=== PATIENT | male | born 1970 | race Caucasian/White ===

== ENCOUNTER 2020-01-18 13:46 | Emergency (ER) | payer OTHER ==
[~2020-01-18] VITALS: Ht 188 cm; Wt 122.5 kg
[2020-01-18 14:05] LABS: ABSOLUTE NEUTROPHILS 3.3 thou/uL (1.4-8.2); BASOPHILS 0.7 % (0.0-2.0); EOSINOPHILS 2.7 % (0.0-3.0); HEMATOCRIT 41.9 % (42.0-52.0); HEMOGLOBIN 14.2 gm/dL (14.0-18.0); LYMPHOCYTES 24.7 % (24.0-44.0); MCH 30.5 pg (26.0-34.0); MCHC 33.9 g/dL (28.0-37.0); MONOCYTES 11.3 % (1.0-8.0); PLATELET COUNT 260 thou/uL (150-400); POLYS 60.6 % (36.0-66.0); RBC 4.66 mil/uL (4.50-6.00); RDW 12.7 % (10.5-14.5); WBC 5.5 thou/uL (4.0-11.0)
[2020-01-18 14:15] LABS: ANION GAP 9 mmol/L (7-16); BUN 12 mg/dL (7-18); CALCIUM 9.1 mg/dL (8.5-10.1); CHLORIDE 104 mmol/L (98-107); CO2 27 mmol/L (21-32); CREATININE 1.1 mg/dL (0.7-1.3); GLUCOSE 101 mg/dL (74-106); SODIUM 140 mmol/L (136-145)
[2020-01-18 14:25] LABS: TROPONIN-I <0.06 ng/mL (<0.06)
[2020-01-18] MEDS ORDERED: ZOCOR 20 MG TAB20 M1 PO (15:33)
[2020-01-18] MEDS ORDERED: PANTOPRAZOLE SO40 M1 PO (15:33)
[2020-01-18] MEDS ORDERED: ZOLPIDEM TARTRA10 MG PO (15:33)
[2020-01-18] MEDS ORDERED: PROAIR HFA8.5 GM INH (15:34)
[2020-01-18] MEDS ORDERED: PRAZOSIN HCL1 MG PO (15:34)
[2020-01-18] MEDS ORDERED: SERTRALINE HCL50 MG PO (15:34)
[2020-01-18] MEDS ORDERED: TRETINOIN20 GM TOP (15:35)
[2020-01-18] MEDS ORDERED: NAPROSYN500 MG PO (15:42)
[2020-01-18 15:50] VITALS: BP 146/92
--- NOTE | 2020-01-19 08:25 | EKG ---
[facility] [place] [address] ELECTROCARDIOGRAM REPORT Name: SANDY HENDERSON Room #: DEP [facility]#: [id number] Admission: 01/18/20 Attend Phys: Discharge: 01/18/20 Date of : 66 Report #: [id number] THIS REPORT FOR: cc: Vinod Xiong MD, Michael B. MD Lundgren,Mo Scott MD [facility] ~ THIS REPORT FOR: //name// [facility] ED Test Date: 2020-01-18 Test Time: 13:46:53 Pat Name: SANDY HENDERSON Department: Room: Gender: [employer] Ass[employer] Manager: : 1970 Requested By: Hossein Byers Order Number: [id number] MD: Mo Jon Measurements Intervals [place] Rate: 68 P: 62 ME: 160 QRS: 39 QRSD: 87 T: 29 QT: 382 QTc: 407 Interpretive Statements Sinus rhythm Normal tracing No previous ECG available for comparison Electronically Signed On 01-19-2020 8:25:27 CDT by Mo Jon [email or web address] <ELECTRONICALLY SIGNED> By: Mo Jon MD, [facility] 01/19/20 0825 1346 45 Mo Jon MD, FACC /EPI
== END 2020-01-18 15:51 | disposition home or self-care (01) ==
LOC: ER 13:46
PROVIDERS: Emergency Medicine
DX: R07.89 Other chest pain (principal); E78.00 Pure hypercholesterolemia, unspecified; K21.9 Gastro-esophageal reflux disease without esophagitis; G43.909 Migraine, unspecified, not intractable, without status migrainosus; Z98.890 Other specified postprocedural states; Z79.899 Other long term (current) drug therapy

== ENCOUNTER → 2020-01-30 | Outpatient (CLI) | payer OTHER ==
[~2020-01-30] MED LIST: NAPROSYN500 MG PO; PANTOPRAZOLE SO40 M1 PO; PRAZOSIN HCL1 MG PO; PROAIR HFA8.5 GM INH; SERTRALINE HCL50 MG PO; TRETINOIN20 GM TOP; ZOCOR 20 MG TAB20 M1 PO; ZOLPIDEM TARTRA10 MG PO
== END ==
LOC: SJCVCIMAG 07:20
PROVIDERS: ATTEND Internal Medicine
DX: I10 Essential (primary) hypertension (principal); R06.00 Dyspnea, unspecified; R07.9 Chest pain, unspecified; E78.5 Hyperlipidemia, unspecified

== ENCOUNTER → 2021-02-18 | Outpatient (CLI) | payer OTHER | LOC: PUL 10:57 | PROVIDERS: ATTEND Chiropractor | DX: J45.998 Other asthma (principal); Z20.822 Contact with and (suspected) exposure to COVID-19 ==

== ENCOUNTER → 2021-02-26 | Outpatient (CLI) | payer OTHER ==
--- NOTE | ~2021-02-26 | PFR/MVV ---
[facility] [place] [address] PULMONARY FUNCTION MVV/REPORT Name: SANDY HENDERSON Room #: REG [facility]#: [id number] Admission: 02/26/21 Attend Phys: Jamil Higgins DO Discharge: Date of : 66 Report #: [id number] THIS REPORT FOR: //name// >> SPIROMETRY: (BTPS) Height: 74 in cm Weight: 300 lbs kg Exam Date: 02/26/21 PRE-RX POST-RX PRED BEST %PRED BEST %PRED %CHG FVC LITERS . 5.41 . 4.48 . 83 . 4.98 . 92 . 11 FEV1 LITERS . 3.88 . 3.18 . 82 . 3.74 . 95 . 16 FEV1/FVC % . 71 . 71 . 99 . 74 . 104 . 5 MQV57-52% L/Sec . 3.65 . 2.00 . 55 . 2.99 . 82 . 49 PEF L/SEC . 9.85 . 5.85 . 59 . 7.57 . 77 . 30 FEF50/FIF50 UNITLESS . 5.42 . 4.45 . 82 . 4.39 . 81 . -1 MVV L/Min . . . f 1/Min . . . >> LUNG VOLUMES: (BTPS) PRE-RX POST-RX PRED AVG %PRED AVG %PRED %CHG VC Liters . 5.41 . 4.87 . 90 . . . TLC Liters . 7.74 . 6.82 . 88 . . . RV Liters . 2.51 . 1.95 . 78 . . . RV/TLC % . 35 . 29 . 83 . . . FRC PL Liters . 3.51 . 2.01 . 57 . . . FRC N2 Liters . 3.51 . . . . . ERV Liters . 1.82 . 0.18 . 10 . . . IC Liters . 3.64 . 4.81 . 132 . . . >> DIFFUSION: DLCO ml/Min/mmHg . 34.4 . 27.9 . 81 . . . DL Perez ml/Min/mmHg . 34.4 . 27.9 . 81 . . . DLCO/VA ml/Min/mmHg . 3.96 . 5.91 . 149 . . . VA Liters . 7.94 . 4.72 . 59 . . . COMMENTS: COMMENTS: >> RESISTANCE: [facility] [address] [place] [address] PULMONARY FUNCTION MVV/REPORT Name: SANDY HENDERSON Room #: REG Colleen Hendrickson.#: [id number] Admission: 02/26/21 Attend Phys: Jamil Higgins DO Discharge: Date of : 66 Report #: [id number] PRE-RX PRED AVG %PRED Raw Total cmH20/L/Sec . . 3.72 . Raw Insp cmH20/L/Sec . . 2.00 . Raw Exp cmH20/L/Sec . . 4.28 . Raw cmH20/L/Sec . 1.29 . 2.82 . 219 Gaw L/Sec/cmH20 . 0.842 . 0.355 . 42 sRaw cmH20 Sec . 4.51 . 10.27 . 228 sGaw l/cmH20 Sec . 0.222 . 0.097 . 44 Vtq Liters . . 3.64 . # = OUTSIDE 95% CONFIDENCE INTERVAL CALIBRATION: PRED: 3.00 ACTUAL: EXP 3.01 INSP 3.02 [place] [address] [place] [address] N-[id number] >> INTERPRETATION/IMPRESSION: DATE OF SERVICE: 02/26/2021 PULMONARY FUNCTION STUDIES SPIROMETRY: FEV1 is 3.18 liters (82%), FVC is 4.48 liters (83% predicted), FEV1/FVC ratio 71%. There is a significant response to bronchodilator therapy. FEV1 increases to 3.70 liters (60% change), FVC increases to 4.98 liters (11% change) total lung capacity is 6.82 liters (88% predicted), vital capacity is 4.87 liters (90% predicted). Residual volume is normal at 1.95 liters (78% predicted). Diffusing capacity is normal at 81%. IMPRESSION: Pulmonary function studies are consistent with a mild obstructive airflow defect. It does resolve with bronchodilator therapy. There is a significant response to bronchodilator therapy. Lung volumes are normal. Diffusing capacity is normal. By: Marv Brown MD /nt
== END ==
LOC: PUL 06:46
PROVIDERS: ATTEND Chiropractor
DX: J98.8 Other specified respiratory disorders (principal); J45.998 Other asthma

== ENCOUNTER → 2021-04-07 | Outpatient (CLI) | payer OTHER | LOC: RAD 08:20 | PROVIDERS: ATTEND Internal Medicine | DX: R06.00 Dyspnea, unspecified (principal) ==

== ENCOUNTER → 2021-05-13 | Outpatient (CLI) | payer OTHER ==
--- NOTE | 2021-05-28 13:38 | MCT ---
[facility] [place] [address] [place] [address] METHACHOLINE CHALLENGE TEST Name: SANDY HENDERSON Room #: REG JAVIER Wise#: [id number] Admission: 05/13/21 Attend Phys: Terrance Galvez MD Discharge: Date of : 66 Report #: [id number] THIS REPORT FOR: //name// Height: 72 in Exam Date: 05/13/21 Weight: 309 lbs BTPS: X >> PRE BRONCHODILATOR: PREDICTED BEST %PRED FORCED VITAL CAPACITY (FRC) L LPM % FORCED EXP VOL/SEC (FEV1) 3.67 L 3.00 FEV/FVC 82 % MAX MID-EXP FLOW (FEF 25-75) 3.51 L/SEC 1.94 L/SEC 55 % PEAK EXP FLOW RATE (FEF MAX) 9.34 L/MIN 8.57 L/MIN MED-VC RATIO (FEF 50/FEF 50) .09 Baseline: Phenol Saline Level 1: 0.025 mg/ml BEST %PRED %CHANGE BEST %PRED %CHANGE FVC 4.14 L 81 % 1 % FVC 3.06 L 60 % -26 % FEV1 3.13 L 85 % 4 % FEV1 2.29 L 62 % -27 % Level 2: 0.25 mg/ml Level 3: 2.5 mg/ml BEST %PRED %CHANGE BEST %PRED %CHANGE FVC L % % FVC L % % FEV1 L % % FEV1 L % % . Level 4: 10 mg/ml Level 5: 25 mg/ml BEST %PRED %CHANGE BEST %PRED %CHANGE FVC L % % FVC L % % FEV1 L % % FEV1 L % % Post Bronchodilator: 1st Treatment Post Bronchodilator: 2nd Treatment BEST %PRED %CHANGE BEST %PRED %CHANGE FVC 4.46 L 88 % 8 % FVC L % % FEV1 3.21 L 87 % 2 % FEV1 L % % Post Bronchodilator: 3rd Treatment BEST %PRED %CHANGE FVC L % % FEV1 L % % >> INTERPRETATION: [facility] [address] [place] [address] METHACHOLINE CHALLENGE TEST Name: SANDY HENDERSON [facility] #: [id number] Admission: 05/13/21 Attend Phys: Terrance Galvez MD Discharge: Date of : 66 Report #: [id number] DATE OF SERVICE: 05/13/2021 INTERPRETATION: Methacholine challenge test was completed in routine standard fashion. FEV1 baseline was 3.00 liters, predicted 3.67 liters starting at 82% predicted. With increasing doses of methacholine, his lung function FEV1 did decline over 20% with a everette of 2.29 liters and 62% of the reference range or 27% change. With bronchodilator therapy, he did have an adequate response with return to normal function. IMPRESSION: This is a positive methacholine challenge test. <ELECTRONICALLY SIGNED> By: Marv Brown MD 05/28/21 1338 Marv Brown MD /nt
== END ==
LOC: PUL 11:28
PROVIDERS: ATTEND Internal Medicine
DX: J45.909 Unspecified asthma, uncomplicated (principal); Z20.822 Contact with and (suspected) exposure to COVID-19